=== PATIENT | male | born 1975 | race African-American/Black ===

== ENCOUNTER 2016-10-17 23:10 | Emergency (ER) | payer MEDICAID ==
[~2016-10-17] VITALS: Ht 175.3 cm; Wt 69.0 kg
[2016-10-18 05:00] VITALS: BP 127/79
== END 2016-10-18 06:15 | disposition left against medical advice (07) ==
LOC: ER 23:10
DX: J02.9 Acute pharyngitis, unspecified (principal); Z53.21 Procedure and treatment not carried out due to patient leaving prior to being seen by health care provider

== ENCOUNTER 2022-03-14 11:41 | Emergency (ER) | payer MEDICAID, OTHER ==
[~2022-03-14] VITALS: Ht 175.3 cm; Wt 80.0 kg
[~2022-03-14 11:41] MED LIST: IBUP-2029 MT; ONDA4TAB5 MT
[2022-03-14] MEDS ORDERED: KETOROLAC 60MG/2ML VIAL IM ONE (12:30)
[2022-03-14 14:22] VITALS: BP 126/82
[2022-03-14] MEDS ORDERED: IBUP-2029 MT (14:48)
== END 2022-03-14 14:56 | disposition home or self-care (01) ==
LOC: ER 11:41
DX: R07.89 Other chest pain (principal); M25.512 Pain in left shoulder; M25.522 Pain in left elbow
CPT/HCPCS: 71045; 71250; 73030; 73080; 93005; 96372; 99285; J1885